=== PATIENT | male | born 1990 | race Caucasian/White ===

== ENCOUNTER 2021-07-02 09:25 | Emergency (ER) | payer BC ==
[2021-07-02 09:30] VITALS: RESP 18
--- NOTE | 2021-07-02 09:50 | ED ---
Upper Extremity HPI - General Chief Complaint: Extremity Injury, Upper Stated Complaint: Finger injury Time Seen by Provider: 07/02/21 09:31 Source: patient, family Mode of arrival: ambulatory Limitations: no limitations - History of Present Illness Initial Comments: The patient is a 31-year-old male who presents to the emergency department following an injury to his left third finger which he obtained one week ago. He was working on a truck and a hoist fell down on his left third finger. His pain is only mild at this point and he states that he has full ROM. Denies any drainage, fevers, chills, or increasing erythema. He specifically wanted to have his finger evaluated because he noticed an increase in swelling and was concerned about a possible foreign body. He has been keeping the injury covered with neosporin and a bandage. Pain is only minimal at this point and he is not requiring any pain medication. MD Complaint: Injury to:: left, finger Onset/Timin -: week(s) Other Extremity Injury: Fingers: Left (left third finger) Other Injuries: none Severity scale (1-10): 2 - Related Data Allergies Allergy/AdvReac Type Severity Reaction Status Date / Time No Known Allergies Allergy Verified 07/02/21 09:30 Review of Systems ROS Statement: Those systems with pertinent positive or pertinent negative responses have been documented in the HPI. ROS Other: All systems not noted in ROS Statement are negative. Past Medical History Past Medical History: No Reported History History of Any Multi-Drug Resistant Organisms: None Reported Past Surgical History: No Surgical Hx Reported Past Psychological History: No Psychological Hx Reported Smoking Status: Never smoker Past Alcohol Use History: Occasional Past Drug Use History: None Reported General Exam Limitations: no limitations General appearance: alert, in no apparent distress Head exam: Present: atraumatic, normocephalic, normal inspection Respiratory exam: Present: normal lung sounds bilaterally. Absent: respiratory distress, wheezes, rales, rhonchi, stridor Cardiovascular Exam: Present: regular rate, normal rhythm, normal heart sounds. Absent: systolic murmur, diastolic murmur, rubs, gallop, clicks Extremities exam: Present: normal capillary refill, other (The left third finger has a superficial laceration with eschar formation and a surrounding ring of erythema. There is mild swelling and the patient has full ROM. No drainage is present.) Course Vital Signs 07/02/21 09:26 Temperature 98.7 F Pulse Rate 100 Respiratory 18 Rate Blood Pressure 129/86 O2 Sat by Pulse 98 Oximetry Medical Decision Making - Medical Decision Making Given the persistent swelling and feeling of a potential foreign body by the patient, an XR was obtained to rule out any fractures or foreign bodies. Xray was negative for any acute changes. The abrasion is healing well with no sign of infection. I educated the patient that the ring of erythema is granulation tissue in the process of healing and is to be expected. Patient stable for discharge home. Return precautions reviewed in depth, the patient is instructed to return to the emergency department if symptoms worsen or do not improve. Patient verbalized understanding. Disposition Clinical Impression: Finger abrasion, non-infected Disposition: HOME SELF-CARE Condition: Stable Instructions (If sedation given, give patient instructions): Abrasion (ED) Additional Instructions: Keep the wound uncovered as much as possible to encourage healing, as long as it is in a clean environment. Is patient prescribed a controlled substance at d/c from ED?: No Referrals: None,Stated [Primary Care Provider] - 1-2 days
--- NOTE | 2021-07-02 09:55 | XR ---
EXAMINATION TYPE: XR finger LT DATE OF EXAM: 07/02/2021 9:50 AM INDICATION: Patient age:Male; 31 years old; Reason for study: Left middle finger, work injury and pain; COMPARISON: None TECHNIQUE: 3 views of the left finger were obtained. FINDINGS: Normal alignment of the visualized joints. No acute osseous pathology is identified. No e vidence of soft tissue swelling. IMPRESSION: No acute osseous pathology.
[2021-07-02 10:29] VITALS: BP 118/69; PULSE 56; TEMP 97.8
== END 2021-07-02 10:29 | disposition home or self-care (01) ==
LOC: EC 09:25
DX: S60.413A Abrasion of left middle finger, initial encounter (principal); W20.8XXA Other cause of strike by thrown, projected or falling object, initial encounter
CPT/HCPCS: 99283

== ENCOUNTER 2021-08-19 01:46 | Emergency (ER) | payer BC ==
[2021-08-19 02:08] VITALS: TEMP 98
--- NOTE | 2021-08-19 03:31 | ED ---
Psych HPI - General Chief Complaint: Psychiatric Symptoms Stated Complaint: Mental health Time Seen by Provider: 08/19/21 02:20 Source: patient Mode of arrival: ambulatory - History of Present Illness Initial Comments: 's patient is a 31-year-old man who complains that he is feeling more and more paranoid. He is feeling people are out to get him. The symptoms have been getting worse since May though he states they have been presents for possibly years in total. Patient was recently seen in clinic and had been started on medications but states they're not helping. Patient denies homicidal or suicidal ideation. MD Complaint: other Onset/Timin -: month(s) Associated Psychiatric Symptoms: racing thoughts, delusions History of same: Yes Quality: getting worse Improves With: none Worsens With: none - Related Data Allergies Allergy/AdvReac Type Severity Reaction Status Date / Time No Known Allergies Allergy Verified 08/19/21 02:08 Review of Systems ROS Statement: Those systems with pertinent positive or pertinent negative responses have been documented in the HPI. ROS Other: All systems not noted in ROS Statement are negative. Constitutional: Denies: fever Respiratory: Denies: cough, dyspnea Cardiovascular: Denies: chest pain, palpitations Gastrointestinal: Denies: abdominal pain, vomiting, diarrhea Genitourinary: Denies: dysuria Musculoskeletal: Denies: back pain Skin: Denies: rash Neurological: Denies: headache, weakness Psychiatric: Denies: auditory hallucinations, visual hallucinations, homicidal thoughts, suicidal thoughts Past Medical History Past Medical History: No Reported History History of Any Multi-Drug Resistant Organisms: None Reported Past Surgical History: No Surgical Hx Reported Past Psychological History: Unable to Obtain Smoking Status: Never smoker Past Alcohol Use History: Occasional Past Drug Use History: None Reported General Exam General appearance: alert, in no apparent distress Head exam: Present: atraumatic, normocephalic Respiratory exam: Present: normal lung sounds bilaterally. Absent: respiratory distress, wheezes, rales, rhonchi, stridor Cardiovascular Exam: Present: regular rate, normal rhythm, normal heart sounds. Absent: systolic murmur, diastolic murmur, rubs, gallop GI/Abdominal exam: Present: soft. Absent: distended, tenderness, guarding, rebound, rigid, mass Extremities exam: Present: normal inspection, normal capillary refill Back exam: Present: normal inspection Neurological exam: Present: alert Psychiatric exam: Absent: depressed, agitated, anxious, flat affect, manic, homicidal ideation, suicidal ideation Skin exam: Present: warm, dry, intact, normal color. Absent: rash Course Vital Signs 08/19/21 02:02 Temperature 98 F Pulse Rate 83 Respiratory 19 Rate Blood Pressure 116/85 O2 Sat by Pulse 97 Oximetry Medical Decision Making - Lab Data Lab Results 08/19/21 Range/Units 03:15 Urine Color Yellow Urine Appearance Clear (Clear) Urine pH 5.5 (5.0-8.0) Ur Specific [place] 1.033 (1.001-1.035) Urine Protein Trace H (Negative) Urine Glucose (UA) Negative (Negative) Urine Ketones Negative (Negative) Urine Blood Negative (Negative) Urine Nitrite Negative (Negative) Urine Bilirubin Negative (Negative) Urine Urobilinogen 2.0 (<2.0) mg/dL Ur Leukocyte Esterase Negative (Negative) Urine Opiates Screen Not Detected (NotDetected) Ur Oxycodone Screen Not Detected (NotDetected) Urine Methadone Screen Not Detected (NotDetected) Ur Propoxyphene Screen Not Detected (NotDetected) Ur Barbiturates Screen Not Detected (NotDetected) U Tricyclic Antidepress Not Detected (NotDetected) Ur Phencyclidine Scrn Not Detected (NotDetected) Ur Amphetamines Screen Not Detected (NotDetected) U Methamphetamines Scrn Not Detected (NotDetected) U Benzodiazepines Scrn Not Detected (NotDetected) Urine Cocaine Screen Not Detected (NotDetected) U Marijuana (THC) Screen Not Detected (NotDetected) Disposition Clinical Impression: Paranoia (psychosis) Disposition: HOME SELF-CARE Condition: Good Instructions (If sedation given, give patient instructions): Psychotic Disorder (ED) Is patient prescribed a controlled substance at d/c from ED?: No Referrals: Nonstaff,Physician [Primary Care Provider] - 1-2 days
[2021-08-19 03:40] LABS: Appearance,Urine Clear (Clear); Bilirubin,Urine Negative (Negative); Blood,Urine Negative (Negative); Color,Urine Yellow; Glucose,Urine (UA) Negative (Negative); Ketones,Urine Negative (Negative); Leukocyte Esterase,Urine Negative (Negative); Nitrite,Urine Negative (Negative); PH, Urine 5.5 (5.0-8.0); Protein,Urine Trace (Negative); Specific Gravity,Urine 1.033 (1.001-1.035)
[2021-08-19 04:02] LABS: Amphetamine Screen,Urine Not Detected (NotDetected); Barbiturate Screen,Urine Not Detected (NotDetected); Benzodiazepines Screen,Urine Not Detected (NotDetected); Cocaine Screen,Urine Not Detected (NotDetected); Methadone Screen, Urine Not Detected (NotDetected); Opiate Screen,Urine Not Detected (NotDetected); Oxycodone Screen, Urine Not Detected (NotDetected); Phencyclidine Screen,Urine Not Detected (NotDetected); Tricyclic Antidepressant,Urine Not Detected (NotDetected); Urn Cannabinoid Scrn Not Detected (NotDetected)
[2021-08-19 04:17] VITALS: BP 120/79; PULSE 84; RESP 18
== END 2021-08-19 04:31 | disposition home or self-care (01) ==
LOC: EC 01:46
DX: F22 Delusional disorders (principal)
CPT/HCPCS: 80306; 81003; 82075; 99284

== ENCOUNTER 2024-01-09 09:23 | Inpatient (IN) | payer BC, OTHER ==
[2024-01-10] MEDS ORDERED: LURASIDONE 40 MG TAB ONE ×2 (08:16→23:59)
[2024-01-10] MEDS ORDERED: lamoTRIgine 25 MG TAB ONE (08:17)
[2024-01-11] MEDS ORDERED: lamoTRIgine 25 MG TAB ONE ×2 (08:24→21:35)
[2024-01-11] MEDS ORDERED: LORazepam 1 MG TAB ONE (21:35)
[2024-01-11] MEDS ORDERED: LURASIDONE 40 MG TAB ONE (23:59)
[2024-01-12] MEDS ORDERED: lamoTRIgine 25 MG TAB ONE ×2 (08:02→20:17)
[2024-01-12] MEDS ORDERED: LURASIDONE 40 MG TAB ONE (08:02)
[2024-01-12] MEDS ORDERED: LORazepam 1 MG TAB ONE ×2 (09:07→16:32)
[2024-01-12] MEDS ORDERED: traZODone HCL 50 MG TAB ONE (21:29)
[2024-01-13] MEDS ORDERED: LORazepam 2 MG/ML INJ IM PRN
[2024-01-13] MEDS ORDERED: IBUPROFEN 600 MG TAB PO PRN
[2024-01-13] MEDS ORDERED: haloperidoL 5 MG TAB PO PRN
[2024-01-13] MEDS ORDERED: HALOPERIDOL LACTATE 5 MG/ML 1 ML VIAL IM PRN
[2024-01-13] MEDS ORDERED: ACETAMINOPHEN TAB 325 MG TAB PO PRN
[2024-01-13] MEDS ORDERED: MAGNESIUM HYDROXIDE 2,400 MG/30 ML CUP PO PRN
[2024-01-13] MEDS ORDERED: MAG HYDROX/AL HYDROX/SIMETH 30 ML CUP PO PRN
[2024-01-13] MEDS ORDERED: LURASIDONE 40 MG TAB ONE (08:44)
[2024-01-13] MEDS ORDERED: lamoTRIgine 25 MG TAB ONE ×2 (08:44→20:43)
[2024-01-13] MEDS ORDERED: LORazepam 1 MG TAB ONE ×2 (10:09→17:07)
[2024-01-13] MEDS: lamoTRIgine 25 MG TAB PO SCH (10:10)
[2024-01-13] MEDS: LURASIDONE 40 MG TAB PO SCH (10:10)
[2024-01-13] MEDS: LORazepam 1 MG TAB PO PRN (10:10)
--- NOTE | 2024-01-13 11:07 | P.PN ---
Progress Note - Text Progress Note Date: 01/13/24 The patient was seen and chart was reviewed and case discussed with the nursing staff Patient reports that he is not experiencing any hallucinations or any paranoid thoughts He denies any suicidal or homicidal ideations He states that the medications do seem to be helping and that his moods are more stable He states that he is hoping to be able to go home soon He states that he will have to find a new job since he was not compliant with his previous job . Mental Status Exam: General Appearance: Patient appears to be , stated age is alert, directable, and attempts to be cooperative. Behavior: Patient is calmly seated without any agitated behavior. Attempts to cooperate. Speech: Patient's speech is fluent and nonpressured. Mood/Affect: Mood is improving mildly, affect is congruent and constricted. Suicidality/Homicidality: Patient denies having any suicidal or homicidal ideation intent or plan. Perceptions: Patient denies any visual hallucinations and denies any auditory hallucinations Though content/process: There is no evidence of any delusional thought content and thought process is linear and goal-directed. [place]. Memory and concentration: AOX3, grossly intact for the purposes of this session Judgment and insight: Improving mildly Assessment Bipolar disorder mixed type improved Substance use disorder unspecified Plan: -Patient continues to meet criteria for inpatient psychiatric admission for symptom stabilization and safety. Patient has signed adult voluntary form and medication consent and was placed in patient's chart. -Medications: Continue Lamictal lurasidone, and Desyrel for insomnia Active Medications Generic Name Dose Route Start Last Admin Trade Name Freq PRN Reason Stop Dose Admin Acetaminophen 650 mg 01/13/24 00:00 Acetaminophen Tab 325 Mg Tab PO Q4H PRN PAIN DISCOMFORT Al Hydroxide/Mg Hydroxide 30 ml 01/13/24 00:00 Mag Hydrox/Al Hydrox/Simeth 30 Ml Cup PO Q4H PRN GI UPSET Haloperidol 5 mg 01/13/24 00:00 Haloperidol 5 Mg Tab PO QID PRN AGITATION Haloperidol Lactate 5 mg 01/13/24 00:00 Haloperidol Lactate 5 Mg/Ml 1 Ml Vial IM QID PRN ACUTE AGITATION Ibuprofen 600 mg 01/13/24 00:00 Ibuprofen 600 Mg Tab PO QID PRN Pain Lamotrigine 25 mg 01/13/24 09:00 01/13/24 10:10 Lamotrigine 25 Mg Tab PO 25 mg BID LYN Administration Lorazepam 1 mg 01/13/24 00:00 01/13/24 10:10 Lorazepam 1 Mg Tab PO 1 mg QID PRN Administration Anxiety Lorazepam 1 mg 01/13/24 00:00 Lorazepam 2 Mg/Ml Inj IM QID PRN ACUTE AGITATION Lurasidone HCl 40 mg 01/13/24 09:00 01/13/24 10:10 Lurasidone 40 Mg Tab PO 40 mg DAILY LYN Administration Magnesium Hydroxide 2,400 mg 01/13/24 00:00 Magnesium Hydroxide 2,400 Mg/30 Ml Cup PO DAILY PRN CONSTIPATION Trazodone HCl 50 mg 01/13/24 00:00 Trazodone Hcl 50 Mg Tab PO HS PRN Insomnia -When necessary Ativan and Haldol for agitation/aggression. -NRT - nicotine patch -SW on board for discharge planning. Encouraged the patient to participate in milieu.
[2024-01-13] MEDS ORDERED: traZODone HCL 50 MG TAB ONE (20:43)
[2024-01-13] MEDS: traZODone HCL 50 MG TAB PO PRN (20:44)
[2024-01-14 07:12] VITALS: BP 108/62; PULSE 70; RESP 14; TEMP 98.1
[2024-01-14] MEDS ORDERED: LORazepam 1 MG TAB ONE (08:31)
[2024-01-14] MEDS ORDERED: lamoTRIgine 25 MG TAB ONE (08:31)
--- NOTE | 2024-01-14 15:07 | P.DS ---
Providers Date of admission: 01/09/24 09:23 Expected date of discharge: 01/14/24 Attending physician: Sameer Price MD Consults: 01/12/24 16:09 Consult Physician Routine Consulting Provider: Alisia Morales Consult Reason/Comments: medical management Do you want consulting provider notified?: Already Contacted Primary care physician: Stated None - Discharge Diagnosis(es) (1) Paranoid psychosis Current Visit: Yes Status: Acute Priority: High Hospital Course: Discharge Summary HPI: The patient noted that he was having issues with his MS. He was hearing voices telling him that his family and parents are danger and he should run away as far as he can. He walked 62 miles to get out of the city. The patient noted that was tired and his legs swell up. He decided to go the police station and seek help. He was [facility]. The police called his family. He was brought to the hospital by his mother. The had discontinued taking his medications for few months before decompensating. He has history of two psychiatric admissions in the past. The second admission was 1 month after the first admission. Hospital Course: After admission, the patient was involved in pharmacotherapy, [place] milieu, and individual psychodynamic psychotherapy. The patient was started Latuda, Lamictal and Trazodone. The dose was titrated to obtain the desire effects. The patient tolerated medications well without any side effects. The patient was also involved in [place] activities. The patient attended the groups and participated well. The patient interacted with peers and staff well. The patient slowly started showing improvement. The hospital course was uneventful. The patient symptoms of depression, suicidal and homicidal ideations abated. The psychosis improved. The patient was stable to be discharged to out-patient care. The patient did not have any guns or weapons in possession at home. MSE: Alert and attentive. Oriented x3 Pleasant and cooperative. Dressed and groomed appropriately. Speech was normal. Psychomotor activity- normal Mood- Depressed and anxious. Affect- Tense, nervous, worried. SI or HI- None noted. Perception- Command auditory hallucination. Thought content- Paranoid delusions. No other delusional theme noted. Thought process- Normal. Judgement and Insight- Poor Diagnosis: Paranoid Psychosis Plan: The patient to be discharged today. The patient has attained good improvement since admission. He is stable to be followed as an outpatient. The patient is not suicidal or Homicidal. He does not pose any harm to self or others. The patient remains at a greater risk of self-harm or harm to others than general population on a chronic basis due to psychiatric illness and substance abuse. The patient will continue taking following medication post discharge. The importance of medication compliance and maintaining regular appointments at psychiatric out-pt and PCP clinic was explained and encouraged. The patient was also advised to seek alcohol counseling and attend AA/NA meetings. The understood and agreed with the recommendations. automobile body worker to arrange for and conduct family meeting to ensure safety upon discharge and answer any questions. The social insurance administrator to arrange for patients follow-up appointments at [facility] for psychiatric care along with follow-up with PCP. The patient provided psychoeducation. Advised to call 911 or go to nearest ED or call this hospital in case of acute worsening of symptomatology, severe side effects or having suicidal, homicidal thoughts and feeling unsafe at home. Patient Condition at Discharge: Stable Plan - Discharge Summary New Discharge Prescriptions: New traZODone HCL [Desyrel] 50 mg PO HS PRN 15 Days #15 tab PRN Reason: Insomnia lamoTRIgine [LaMICtal] 25 mg PO BID 15 Days #30 tab Lurasidone [Latuda] 40 mg PO DAILY 15 Days #15 tab Discharge Medication List Lurasidone [Latuda] 40 mg PO DAILY 15 Days #15 tab 01/14/24 [Rx] lamoTRIgine [LaMICtal] 25 mg PO BID 15 Days #30 tab 01/14/24 [Rx] traZODone HCL [Desyrel] 50 mg PO HS PRN 15 Days #15 tab 01/14/24 [Rx] Follow up Appointment(s)/Referral(s): Fabian Ventura [Other] - 01/16/24 11:20 am
== END 2024-01-14 17:53 | disposition home or self-care (01) | DRG 885 ==
LOC: 3MHU 09:23
PROVIDERS: ADMIT Psychiatry & Neurology Psychiatry; ATTEND Psychiatry & Neurology Psychiatry
DX: F22 Delusional disorders (principal); F31.60 Bipolar disorder, current episode mixed, unspecified; F17.210 Nicotine dependence, cigarettes, uncomplicated; Z71.6 Tobacco abuse counseling; M25.472 Effusion, left ankle; M25.471 Effusion, right ankle; F19.90 Other psychoactive substance use, unspecified, uncomplicated
CPT/HCPCS: 83036; 99285

== ENCOUNTER 2024-03-27 15:01 | Inpatient (IN) | payer BC, OTHER ==
--- NOTE | 2024-03-27 15:51 | ED ---
Psych HPI - General Chief Complaint: Psychiatric Symptoms Stated Complaint: Mental health eval Time Seen by Provider: 03/27/24 15:20 Source: patient, RN notes reviewed, old records reviewed Mode of arrival: ambulatory - History of Present Illness Initial Comments: This is a 33-year-old male to the ER for evaluation today. [place] regards to severe psychiatric illness with family patient has not taken his meds in about 4 to 5 days, patient is and not necessarily homicidal or suicidal but does appear to be more psychotic and here with family who are p etitioning for psychiatric evaluation MD Complaint: suicidal ideation -: days(s) Associated Psychiatric Symptoms: racing thoughts, auditory hallucinations, visual hallucinations, delusions Quality: constant Improves With: none Worsens With: none Context: not taking psychiatric medications Associated Symptoms: denies other symptoms Treatments Prior to Arrival: none - Related Data Previous Rx's Medication Instructions Recorded Lurasidone [Latuda] 40 mg PO DAILY 15 Days #15 tab 01/14/24 lamoTRIgine [LaMICtal] 25 mg PO BID 15 Days #30 tab 01/14/24 traZODone HCL [Desyrel] 50 mg PO HS PRN 15 Days #15 tab 01/14/24 Allergies Allergy/AdvReac Type Severity Reaction Status Date / Time No Known Allergies Allergy Verified 03/27/24 15:18 Review of Systems ROS Statement: Those systems with pertinent positive or pertinent negative responses have been documented in the HPI. ROS Other: All systems not noted in ROS Statement are negative. Past Medical History Past Medical History: No Reported History History of Any Multi-Drug Resistant Organisms: None Reported Past Surgical History: No Surgical Hx Reported Past Psychological History: Unable to Obtain Smoking Status: Never smoker Past Alcohol Use History: Occasional Past Drug Use History: None Reported General Exam Limitations: no limitations General appearance: alert, in no apparent distress Head exam: Present: atraumatic, normocephalic, normal inspection Eye exam: Present: normal appearance, PERRL, EOMI. Absent: scleral icterus, conjunctival injection, periorbital swelling ENT exam: Present: normal exam, mucous membranes moist Neck exam: Present: normal inspection. Absent: tenderness, meningismus, ly mphadenopathy Respiratory exam: Present: normal lung sounds bilaterally. Absent: respiratory distress, wheezes, rales, rhonchi, stridor Cardiovascular Exam: Present: regular rate, normal rhythm, normal heart sounds. Absent: systolic murmur, diastolic murmur, rubs, gallop, clicks GI/Abdominal exam: Present: soft, normal bowel sounds. Absent: distended, tenderness, guarding, rebound, rigid Extremities exam: Present: normal inspection, full ROM, normal capillary refill. Absent: tenderness, pedal edema, joint swelling, calf tenderness Back exam: Present: normal inspection Neurological exam: Present: alert, oriented X3, CN II-XII intact Psychiatric exam: Present: normal affect, normal mood Skin exam: Present: warm, dry, intact, normal color. Absent: rash Course Vital Signs 03/27/24 15:13 Temperature 97.5 F L Pulse Rate 64 Respiratory 20 Rate Blood Pressure 112/69 O2 Sat by Pulse 98 Oximetry - Reevaluation(s) Reevaluation #1: 03/27/24 16:30 Medical records reviewed Reevaluation #2: 03/27/24 16:30 Medical cleared for psychiatric evaluation Reevaluation #3: Differential Mental Health Depression, anxiety, bipolar, psychosis, schizophrenia, borderline personality, situational depression, adjustment disorder, behavioral disorder, brain tumor, malingering, substance abuse, encephalopathy, medication reaction, dementia, hypothyroidism, degenerative neurologic disorder, lupus.... This is not meant to be all-inclusive list Medical Decision Making - Medical Decision Making 33 male will be admitted for psychiatric evaluation and treatment Disposition Clinical Impression: Paranoid psychosis, Acute psychosis Disposition: ADMITTED IP TO THIS [facility] Condition: Fair Is patient prescribed a controlled substance at d/c from ED?: No Referrals: Nonstaff,Physician [REFERRING] - 1-2 days Time of Disposition: 17:50
[2024-03-27] MEDS ORDERED: haloperidoL 5 MG TAB PO PRN (19:57)
[2024-03-27] MEDS ORDERED: LORazepam 2 MG/ML INJ IM PRN (19:57)
[2024-03-27] MEDS ORDERED: MAGNESIUM HYDROXIDE 2,400 MG/30 ML CUP PO PRN (19:57)
[2024-03-27] MEDS ORDERED: IBUPROFEN 600 MG TAB PO PRN (19:57)
[2024-03-27] MEDS ORDERED: MAG HYDROX/AL HYDROX/SIMETH 355 ML BOTTLE PO PRN (19:57)
[2024-03-27] MEDS ORDERED: HALOPERIDOL LACTATE 5 MG/ML 1 ML VIAL IM PRN (19:57)
[2024-03-27] MEDS ORDERED: ACETAMINOPHEN TAB 325 MG TAB PO PRN (19:57)
--- NOTE | 2024-03-28 01:26 | P.PN ---
Progress Note - Text Progress Note Date: 03/28/24 Attempted to see the patient in the mental health unit on 03/27 at 2100. The patient refused to be seen or be evaluated.
[2024-03-28] MEDS: NICOTINE 14MG/24HR PATCH TRANSDERM SCH (11:11)
--- NOTE | 2024-03-28 12:28 | P.HP ---
Psychiatric H&P - . H&P Date: 03/28/24 History & Physical: Allergies Allergy/AdvReac Type Severity Reaction Status Date / Time No Known Allergies Allergy Verified 03/27/24 15:18 Vital Signs Temp 98.0 F 03/27/24 19:57 Pulse 61 03/27/24 19:57 Resp 16 03/27/24 19:57 BP 102/63 03/27/24 19:57 Pulse Ox 98 03/27/24 19:57 FiO2 Intake & Output 03/27/24 03/28/24 03/28/24 18:59 06:59 18:59 Weight 65.771 kg 61 kg Laboratory Last Values SARS-CoV-2 (PCR) Not Detected (Not Detectd) 03/27/24 18:35 03/28/24 08:57 IDENTIFYING DATA: Patient is a 33-year-old male. Been staying with his mother. Going through divorce. No children. Unemployed. HPI: Patient presented to the hospital on 03/27. As per EPS note, "Pt was brought in and petitioned by his step mother. Petition states, " Vinicio has been diagnosed schizophrenia. He is having autitory halucinations telling him to not eat or drink and if he does it will harm him. He has thrown away everything he owns and tell him to leave. We have filed several missing persons reports dur to the command of vocies telling him to walk away from his life and responsibilities. He has stop all medications". Both mother and step mother were present in the ER and both expressed their concerns for pts safety and do not feel he is safe and is going to intentionally or unintentionally harm himself. They states that he has gone missing and that he is not eating much because the voices. Mother went to his home and all his furniture and clothes, "everything" was thrown away. During assessment pt is very flat and guarded. Pt has poor eye contact with RN. Pt admits to a suicide attempt 2 years ago with ASA but when asked if he was suicidal now he would not answer. He does admit to feeling helpless and hopeless. Pt is not sharing much information with RN and will answer alot of questions with " i don't know". He denies anything giving him kaity and has no goals or plans for the future. Pt does not utilize his supports and is not taking medications or following with mental health treatment. Pt admits to a lack of motivation to eat but would not share what he is or isn't eating. He admits to poor sleep and not wanting to care for his basic needs. Pt is tearful on and off during assessment. Pt denies any medical conditions and denies the use of substances of etoh. When RN read pt the petition he did not have any comments or any response, "not much to share". Pt is very vague and guarded. Pt is going through a divorce. Pt is currently staying with his mother in [place] for the last few days." Upon today's assessment, he states he really don't know why he is in here. He states he mom brought him to the hospital, because she thought it was best for him. He states that there was no fights, and no big stressors in his life. He reports an overall good mood, with no depression or anxiety. He states he sleeps well, and he states he is not sure about his appetite. He lacks insight, and he has poor judgment, into his need for treatment. He states he does not need to be in the hospital or need medications. He is very vague and guarded. Poor historian. Poverty of content. The patient is secluding to his room on the unit, refusing food, labs, and w ater. He does appear to be responding to internal stimuli. Patient denies any suicidal or homicidal ideations intent or plan. At this time patient denies any auditory or visual hallucinations. Patient denies any flight of ideas or racing thoughts. He does appear paranoid, due to his unwillingness to participate in the interview. Patient denies using any recreational drugs or alcohol. PAST PSYCHIATRIC HISTORY: Patient states that he has been inpatient. He was last on this unit in December of this year. He denies outpatient follow up. Patient states he tried to overdose on aspirin years ago, as a suicide attempt. PMH:As per ER note ALLERGIES: as per EMR CHEMICAL DEPENDENCY HISTORY: as per HPI FAMILY PSYCHIATRIC/SUBSTANCE USE HISTORY: [denies] SOCIAL HISTORY: Patient was born and raised in [place], [place]. High school graduate. He is currently unemployed, but recently worked retail. He is going through a divorce, has no children. Stays with his mother, and denies any legal problems.. MENTAL STATUS EXAM: General Appearance: Patient appears to be stated age is alert, somewhat uncooperative. Patient appears to have poor hygiene and grooming. Short in stature, thin. Dressed casually. Behavior: Patient is seated without any agitated behavior. [place], Withdrawn, Guarded, vague. Poor eye contact Speech: Patient's speech is minimal Mood/Affect: Patient reports their mood is fine, affect is congruent and constricted. Poverty of content Suicidality/Homicidality: Patient denies having any homicidal ideation intent or plan. [Denies any suicidal ideations intent or plan] Perceptions: Patient denies any visual hallucinations [and denies any auditory hallucinations] Though content/process: [There is no evidence of any delusional thought content and thought process concrete, guarded and vague poverty of content. Memory and concentration: AOX3, grossly intact for the purposes of this session. Judgment and insight: [poor] STRENGTHS/WEAKNESSES: strength is that patient is [resilient]. Weakness is that patient [has poor judgment and poor decision making] INTELLECT: [average] IMPRESSIONS: schizophrenia nonadherence to medication PLAN: -Patient is admitted under [involuntary] status to MHU for stabilization of psychiatric symptoms and safety. Patient has not signed adult voluntary form or medication consent and is placed in patient's chart. A second certification was completed and along with petition will be filed for court. -Medications : Invega PO 3mg bid for psychosis, trazodone 50mg qhs prn for sleep -Ativan [and Haldol] PRN for agitation/aggression -Patient was informed of the risks, benefits and side effects of the medication -Internal Medicine consult to perform medical evaluation and physical. -NRT - [nicotine patch] -SW on board for discharge planning. Encourage patient to participate in groups to work on coping skills. Will await deferral and court date 03/28/24 11:55 03/28/24 12:26
[2024-03-28] MEDS: PALIPERIDONE 3 MG TAB.ER.24 PO SCH (21:40)
--- NOTE | 2024-03-29 14:54 | P.PN ---
Progress Note - Text Progress Note Date: 03/29/24 Interval History: Patient was seen wandering the hallways and was directable and agreeable to sp josi with report writer in the office. Patient is quite withdrawn and guarded during interview. He states that his mood is "good ". Discussed the medications with him and he continues to have hesitation about taking them. He says that he had restlessness when he was on medication in the past but this provider continued to attempt a discussion with him regarding them. He was asked to consider initiating Invega at least at bedtime. He states that his sleep and appetite have been good and denies all concerns. At this time patient denies any suicidal or homicidal ideations, intent or plan. Patient denies any auditory, visual hallucinations and denies any paranoia or delusions. Patient has not been compliant with meds. Mental Status Exam: General Appearance: Patient appears to be stated age is alert, somewhat uncooperative. Patient appears to have poor hygiene and grooming. Short in stature, thin. Dressed casually. Behavior: Patient is seated without any agitated behavior. Withdrawn, Guarded, vague. Poor eye contact Speech: Patient's speech is minimal Mood/Affect: Patient reports their mood is fine, affect is congruent and constricted. Poverty of content Suicidality/Homicidality: Patient denies having any homicidal ideation intent or plan. Denies any suicidal ideations intent or plan Perceptions: Patient denies any visual hallucinations and denies any auditory hallucinations Though content/process: There is no evidence of any delusional thought content and thought process concrete, guarded and vague poverty of content. Memory and concentration: AOX3, grossly intact for the purposes of this session. Judgment and insight: poor Assessment schizophrenia PLAN: -Patient is admitted under involuntary status to MHU for stabilization of psychiatric symptoms and safety. Patient has not signed adult voluntary form or medication consent and is placed in patient's chart. A second certification was completed and along with petition will be filed for court. -Medications : Invega PO 3mg bid for psychosis, trazodone 50mg qhs prn for sleep -Ativan and Haldol PRN for agitation/aggression -Patient was informed of the risks, benefits and side effects of the medication -SW on board for discharge planning. Encourage patient to participate in groups to work on coping skills. Will await deferral and court date 03/28/24 11:55
[2024-03-29] MEDS: LORazepam 1 MG TAB PO PRN (20:42)
[2024-03-30 08:54] LABS: Appearance,Urine Clear (Clear); Bilirubin,Urine Negative (Negative); Blood,Urine Negative (Negative); Color,Urine Yellow; Glucose,Urine (UA) Negative (Negative); Ketones,Urine Negative (Negative); Leukocyte Esterase,Urine Negative (Negative); Nitrite,Urine Negative (Negative); Protein,Urine Trace (Negative); Specific Gravity,Urine 1.034 (1.001-1.035); Urobilinogen,Urine <2.0 mg/dL (<2.0)
[2024-03-30 09:07] LABS: Basophils # (A) 0.1 k/uL (0-0.2); Basophils % (A) 1 %; Eosinophils # (A) 0.2 k/uL (0-0.7); Eosinophils % (A) 3 %; HCT 47.7 % (39.0-53.0); Lymphocytes # (A) 1.7 k/uL (1.0-4.8); Lymphocytes % (A) 32 %; MCH 30.6 pg (25.0-35.0); MCHC 33.4 g/dL (31.0-37.0); MCV 91.6 fL (80.0-100.0); Mean Platelet Volume 8.3; Monocytes # (A) 0.4 k/uL (0-1.0); Monocytes % (A) 7 %; Neutrophils % (A) 55 %; Platelet Count 226 k/uL (150-450); RBC 5.21 m/uL (4.30-5.90); RDW 12.4 % (11.5-15.5); WBC 5.4 k/uL (3.8-10.6)
[2024-03-30 09:20] LABS: ALT 42 U/L (4-49); AST 43 U/L (17-59); African American GFR (CKD) >90 (>60 ml/min/1.73 sqM); Albumin 4.8 g/dL (3.5-5.0); Alkaline Phosphatase 49 U/L (38-126); Anion Gap 10 mmol/L; Bilirubin,Unconjugated 0.6 mg/dL (0.0-1.1); Blood Urea Nitrogen 24 mg/dL (9-20); Calcium 9.6 mg/dL (8.4-10.2); Carbon Dioxide 31 mmol/L (22-30); Chloride 100 mmol/L (98-107); Glucose 114 mg/dL (74-99); Non-African American GFR(CKD) >90 (>60 ml/min/1.73 sqM); Potassium 4.3 mmol/L (3.5-5.1); Sodium 141 mmol/L (137-145); Total Bilirubin 0.6 mg/dL (0.2-1.3); Total Protein 7.6 g/dL (6.3-8.2)
--- NOTE | 2024-03-30 13:04 | P.PN ---
Progress Note - Text Progress Note Date: 03/30/24 Interval History: Patient was seen wandering the hallways and was directable and agreeable to frank prater with bid writer in the office. Patient is less withdrawn during interview. He states that his mood is "good ". He took Invega last night and this morning and says he has not noticed any side effects. He says he would like to follow-up with [facility] following discharge. He says his noncompliance led to being discharged from doctors in the past. Discussed the risks of noncompliance on brain function and cognition over time. He states that his sleep and appetite have been good and denies all concerns. He says he has been drinking Ensure. Discussed results of his labs. Patient agreeable with getting T4 ordered for tomorrow. At this time patient denies any suicidal or homicidal ideations, intent or plan. Patient denies any auditory, visual hallucinations and denies any paranoia or delusions. Mental Status Exam: General Appearance: Patient appears to be stated age is alert, cooperative. Patient appears to have poor hygiene and grooming. Short in stature, thin. Dressed casually. Behavior: Patient is seated without any agitated behavior. Less withdrawn. Fair eye contact Speech: Patient's speech is minimal Mood/Affect: Patient reports their mood is fine, affect is congruent and constricted. Suicidality/Homicidality: Patient denies having any homicidal ideation intent or plan. Denies any suicidal ideations intent or plan Perceptions: Patient denies any visual hallucinations and denies any auditory hallucinations Though content/process: There is no evidence of any delusional thought content and thought process concrete, poverty of content, improving mildly Memory and concentration: AOX3, grossly intact for the purposes of this session. Judgment and insight: poor Assessment schizophrenia PLAN: -Patient is admitted under involuntary status to MHU for stabilization of psychiatric symptoms and safety. Patient has not signed adult voluntary form or medication consent and is placed in patient's chart. A second certification was completed and along with petition will be filed for court. -Medications : Invega PO 3mg bid for psychosis, trazodone 50mg qhs prn for sleep - TSH mildly elevated. Ordered T4 for tomorrow -Ativan and Haldol PRN for agitation/aggression -Patient was informed of the risks, benefits and side effects of the medication -SW on board for discharge planning. Encourage patient to participate in groups to work on coping skills. Will await deferral and court date
[2024-03-30 16:16] LABS: Chol/HDL Ratio 2.87 Ratio; VLDL Calculation 15.24 mg/dL (5.00-40.00)
[2024-03-30 16:54] LABS: Urine Alcohol Negative (Negative); Urine Barbiturate Negative (Negative); Urine Cocaine Negative (Negative); Urine Methadone Negative (Negative); Urine Opiates Negative (Negative); Urine Phencyclidine Negative (Negative)
--- NOTE | 2024-03-31 11:26 | P.PN ---
Progress Note - Text Progress Note Date: 03/31/24 Interval History: Patient was seen wandering the hallways and was directable and agreeable to frank prater with health science writer in the office. Patient reports a good mood today. He is apologetic for his behavior Sunday. He is cooperative today, and his mood, behavior and thought process has improved over the weekend. He states that he has been taking the medications, and he is feeling much more clear. He has been going to groups. He states that his sleep and appetite have been good and denies all concerns. Centrifugal Extractor Operator spoke with the patient about receiving a WHITE, and the patient is agreeable. At this time patient denies any suicidal or homicidal ideations, intent or plan. Patient denies any auditory, visual hallucinations and denies any paranoia or delusions. Mental Status Exam: General Appearance: Patient appears to be stated age is alert, cooperative. Patient appears to have improved hygiene and grooming. Short in stature, thin. Dressed casually. Behavior: Patient is seated without any agitated behavior. Less withdrawn. Fair eye contact Speech: Patient's speech is fluent and nonpressured. Mood/Affect: Patient reports their mood is good, affect is congruent and constricted. Suicidality/Homicidality: Patient denies having any homicidal ideation intent or plan. Denies any suicidal ideations intent or plan Perceptions: Patient denies any visual hallucinations and denies any auditory hallucinations Though content/process: There is no evidence of any delusional thought content and thought process is linear and goal orientated. improving mildly Memory and concentration: AOX3, grossly intact for the purposes of this session. Judgment and insight: poor, mildly improving Assessment schizophrenia PLAN: -Patient is admitted under involuntary status to MHU for stabilization of psychiatric symptoms and safety. Patient has not signed adult voluntary form or medication consent and is placed in patient's chart. A second certification was completed and along with petition will be filed for court. -Medications : Invega PO 3mg bid for psychosis d/c tomorrow morning, trazodone 50mg qhs prn for sleep. Add Invega Sustenna 234mg IM 03/31, next dose of 156mg IM, 04/03, then 117mg IM monthly, due 05/01 -Ativan and Haldol PRN for agitation/aggression -Patient was informed of the risks, benefits and side effects of the medication -SW on board for discharge planning. Encourage patient to participate in groups to work on coping skills. Will await deferral and court date. hopeful for discha rge vs sunday after patient recieves his second WHITE.
[2024-03-31] MEDS: PALIPERIDONE IM 234 MG/1.5 ML SYG IM STA (14:11)
[2024-03-31] MEDS: PALIPERIDONE 3 MG TAB.ER.24 PO SCH (20:41)
[2024-04-01] MEDS: PALIPERIDONE IM 234 MG/1.5 ML SYG IM ONE (09:12)
--- NOTE | 2024-04-01 11:21 | P.PN ---
Progress Note - Text Progress Note Date: 04/01/24 Interval History: Patient was seen wandering the hallways and was directable and agreeable to sp josi with promotion writer in the office. Patient reports a good mood today. He initially refused his WHITE yesterday, however, was agreeable to take it today. He talks of plans to move to [place] with his father upon discharge, and his father is looking into followup care down there for him. He has been going to groups. He states that his sleep and appetite have been good and denies all concerns. Credit Interviewer spoke with the patient about receiving a WHITE, and the patient is agreeable. he received his first WHITE today. At this time patient denies any suicidal or homicidal ideations, intent or plan. Patient denies any auditory, visual hallucinations and denies any paranoia or delusions. Mental Status Exam: General Appearance: Patient appears to be stated age is alert, cooperative. Patient appears to have improved hygiene and grooming. Short in stature, thin. Dressed casually. Behavior: Patient is seated without any agitated behavior. Less withdrawn. Fair eye contact Speech: Patient's speech is fluent and nonpressured. Mood/Affect: Patient reports their mood is good, affect is congruent and constricted. improving mildly Suicidality/Homicidality: Patient denies having any homicidal ideation intent or plan. Denies any suicidal ideations intent or plan Perceptions: Patient denies any visual hallucinations and denies any auditory hallucinations Though content/process: There is no evidence of any delusional thought content and thought process is linear and goal orientated. improving mildly Memory and concentration: AOX3, grossly intact for the purposes of this session. Judgment and insight: mildly improving Assessment schizophrenia PLAN: -Patient is admitted under involuntary status to MHU for stabilization of psychiatric symptoms and safety. Patient has not signed adult voluntary form or medication consent and is placed in patient's chart. -Medications : d/c Invega PO today. trazodone 50mg qhs prn for sleep. Invega Sustenna 234mg IM 04/01, next dose of 156mg IM, 04/04, then 117mg IM monthly, due 05/02 -Ativan and Haldol PRN for agitation/aggression -SW on board for discharge planning. Encourage patient to participate in groups to work on coping skills. Will await deferral and court date. hopeful for discharge sunday after patient receives his second WHITE.
[2024-04-01 13:52] VITALS: BMI 20.6
[2024-04-01] MEDS: traZODone HCL 50 MG TAB PO PRN (20:57)
[2024-04-02 07:27] VITALS: RESP 16
[2024-04-02] MEDS ORDERED: traZODone HCL 50 MG TAB PO PRN (12:37)
--- NOTE | 2024-04-02 12:40 | P.PN ---
Progress Note - Text Progress Note Date: 04/02/24 Interval History: Patient was seen wandering the hallways and was directable and agreeable to frank prater with information writer in the office. Patient reports a good mood today, states that he is doing better overall. Claims that he is tolerating the long-acting injection fairly well. He is okay with taking the second dose on Sunday morning before discharge. States that he is trying to go to groups interact with other patients. He is reported reporting an improvement in his mood and also anxiety today.. He states that his sleep and appetite have been good and denies all concerns. He claims that he did try the trazodone last night however states that it might be too strong, was agreeable to try a half dose. At this time patient denies any suicidal or homicidal ideations, intent or plan. Patient denies any auditory, visual hallucinations and denies any paranoia or delusions. Mental Status Exam: General Appearance: Patient appears to be stated age is alert, cooperative. Patient appears to have improved hygiene and grooming. Short in stature, thin. Dressed casually. Behavior: Patient is seated without any agitated behavior. Less withdrawn. Fair eye contact Speech: Patient's speech is fluent and nonpressured. Mood/Affect: Patient reports their mood is good, affect is congruent and constri cted. improving mildly Suicidality/Homicidality: Patient denies having any homicidal ideation intent or plan. Denies any suicidal ideations intent or plan Perceptions: Patient denies any visual hallucinations and denies any auditory hallucinations Though content/process: There is no evidence of any delusional thought content and thought process is linear and goal orientated. improving mildly Memory and concentration: AOX3, grossly intact for the purposes of this session. Judgment and insight: mildly improving Assessment schizophrenia PLAN: -Patient is admitted under involuntary status to MHU for stabilization of psychiatric symptoms and safety. Patient has not signed adult voluntary form or medication consent and is placed in patient's chart. -Medications : d/c Invega PO today. decrease trazodone 25 mg qhs prn for sleep. Invega Sustenna 234mg IM 04/01, next dose of 156mg IM, 04/04, then 117mg IM monthly, due 05/02 -Ativan and Haldol PRN for agitation/aggression -SW on board for discharge planning. Encourage patient to participate in groups to work on coping skills. Will await deferral and court date. hopeful for discharge sunday after patient receives his second WHITE.
[2024-04-03 07:03] VITALS: TEMP 98.6
--- NOTE | 2024-04-03 10:16 | P.PN ---
Progress Note - Text Progress Note Date: 04/03/24 Interval History: Patient was seen wandering the hallways and was directable and agreeable to sp josi with short story writer in the office. Patient denied any overnight complaints. States that he is doing a bit better today. We spoke more about discharge planning likely tomorrow after he receives the second shot. He claims that his mother will most likely pick him up. He is trying to go to groups. Claims that he is eating fairly, slept fairly throughout the night did not need trazodone. At this time patient denies any suicidal or homicidal ideations, intent or plan. Patient denies any auditory, visual hallucinations and denies any paranoia or delusions. Mental Status Exam: General Appearance: Patient appears to be stated age is alert, cooperative. Patient appears to have improved hygiene and grooming. Short in stature, thin. Dressed casually. Behavior: Patient is seated without any agitated behavior. Fair eye contact Speech: Patient's speech is fluent and nonpressured. Mood/Affect: Patient reports their mood is good, affect is congruent and improving mildly Suicidality/Homicidality: Patient denies having any homicidal ideation intent or plan. Denies any suicidal ideations intent or plan Perceptions: Patient denies any visual hallucinations and denies any auditory hallucinations Though content/process: There is no evidence of any delusional thought content and thought process is linear and goal orientated. improving mildly Memory and concentration: AOX3, grossly intact for the purposes of this session. Judgment and insight: mildly improving Assessment schizophrenia PLAN: -Patient is admitted under involuntary status to MHU for stabilization of psychiatric symptoms and safety. Patient has not signed adult voluntary form or medication consent and is placed in patient's chart. -Medications : trazodone 25 mg qhs prn for sleep. Invega Sustenna 234mg IM 04/01, next dose of 156mg IM, 04/04, then 117mg IM monthly, due 05/02 -Ativan and Haldol PRN for agitation/aggression -NRT - non-smoker -SW on board for discharge planning. Encourage patient to participate in groups to work on coping skills. Will await deferral and court date, patient will need to do deferral with his county attorney tomorrow prior to d/c. hopeful for discharge tomorrow after patient receives his second WHITE.
[2024-04-04 06:47] VITALS: BP 93/54; PULSE 66
[2024-04-04] MEDS: PALIPERIDONE IM 156 MG/ML SYG IM ONE (09:17)
--- NOTE | 2024-04-04 11:07 | P.DS ---
Providers Date of admission: 03/27/24 19:56 Expected date of discharge: 04/04/24 Attending physician: Gary Restrepo MD Consults: 03/27/24 19:57 Consult Physician Routine Consulting Provider: Angeli Carrera Consult Reason/Comments: H & P Do you want consulting provider notified?: Yes, Notify in am Primary care physician: Stated None - Discharge Diagnosis(es) (1) Schizophrenia Current Visit: Yes Status: Acute Priority: High Hospital Course: Admission HPI: Admission note was completed by senior writer" Patient presented to the hospital on 03/27. As per EPS note, "Pt was brought in and petitioned by his step mother. Petition states, " Vinicio has been diagnosed schizophrenia. He is having autitory halucinations telling him to not eat or drink and if he does it will harm him. He has thrown away everything he owns and tell him to leave. We have filed several missing persons reports dur to the command of [employer] telling him to walk away from his life and responsibilities. He has stop all medications". Both mother and step mother were present in the ER and both expressed their concerns for pts safety and do not feel he is safe and is going to intentionally or unintentionally harm himself. They states that he has gone missing and that he is not eating much because the voices. Mother went to his home and all his furniture and clothes, "everything" was thrown away. During assessment pt is very flat and guarded. Pt has poor eye contact with RN. Pt admits to a suicide attempt 2 years ago with [facility]SA but when asked if he was suicidal now he would not answer. He does admit to feeling helpless and hopeless. Pt is not sharing much information with RN and will answer alot of questions with " i don't know". He denies anything giving him kaity and has no goals or plans for the future. Pt does not utilize his supports and is not taking medications or following with mental health treatment. Pt admits to a lack of motivation to eat but would not share what he is or isn't eating. He admits to poor sleep and not wanting to care for his basic needs. Pt is tearful on and off during assessment. Pt denies any medical conditions and denies the use of substances of etoh. When RN read pt the petition he did not have any comments or any response, "not much to share". Pt is very vague and guarded. Pt is going through a divorce. Pt is currently staying with his mother in [place] for the last few days." Upon today's assessment, he states he really don't know why he is in here. He states he mom brought him to the hospital, because she thought it was best for him. He states that there was no fights, and no big stressors in his life. He reports an overall good mood, with no depression or anxiety. He states he sleeps well, and he states he is not sure about his appetite. He lacks insight, and he has poor judgment, into his need for treatment. He states he does not need to be in the hospital or need medications. He is very vague and guarded. Poor historian. Poverty of content. The patient is secluding to his room on the unit, refusing food, labs, and water. He does appear to be responding to internal stimuli. Patient denies any suicidal or homicidal ideations intent or plan. At this time patient denies any auditory or visual hallucinations. Patient denies any flight of ideas or racing thoughts. He does appear paranoid, due to his unwillingness to participate in the interview. Patient denies using any recreational drugs or alcohol." Hospital course: Upon admission to the unit patient was directable and agreeable to commence treatment and signed adult voluntary form. Patient ended up signing a deferral with the trust and estates attorney and agreeing to treatment. Patient got along well with other patients on the unit and followed unit protocol. Patient was compliant with the medications and denied any side effects throughout hospital course. Patient was started on Invega p.o. increased to dose of 3 mg twice daily, he was agreeable to be transitioned onto Invega Sustenna to ensure compliance. Given loading dose of 234 mg IM on 04/01, second dose of 156 mg IM was given on 04/04. Monthly maintenance dose of 117 mg IM will be due on 05/02. Trazodone 25 mg nightly as needed for sleep. Patient spoke of his stressors and engaged in therapy both group and individual. Patient was also seen by medical team for history and physical exam. Throughout the course of the hospitalization patient gradually improved with regards to mood, anxiety, psychosis, sleep and became more future oriented with improved insight and judgment. On the day of discharge patient denied any suicidal or homicidal ideations intent or plan denied any auditory or visual hallucinations. Patient endorsed wanting to live for his health and family. The patient denied any access to guns or weapons. Patient denied any paranoia and did not endorse any delusions. Patient does have a significant history of substance abuse and was counseled on abstaining from all substances including alcohol and marijuana. Patient was also counseled on the medications and need for regular compliance and was encouraged to follow-up with their outpatient appointment for mental health and also for primary care. Prior to discharge a family meeting will be arranged by school social worker to answer any questions and ensure safety upon discharge. Patient will be discharged today back home. Mental status exam: General Appearance: Patient appears to be thin, stated age is alert, pleasant, and cooperative. Patient is in no acute distress and has improved hygiene and grooming Behavior: Patient is calmly seated without any agitated behavior. Speech: Patient's speech is fluent and nonpressured. Mood/Affect: Patient reports their mood is "good", affect is congruent Suicidality/Homicidality: Patient denies having any suicidal or homicidal ideation intent or plan. Perceptions: Patient denies any auditory or visual hallucinations. Though content/process: There is no evidence of any delusional thought content and thought process is linear and goal-directed. More future oriented Memory and concentration: AOX3, grossly intact for the purposes of this session. Can spell "WORLD" backwards correctly. Judgment and insight: improved with guarded prognosis Impression: schizophrenia Plan: -Continue with discharge today as patient has improved and stabilized psychiatrically and is not currently an imminent threat to himself and/or others. -Continue medications: Invega p.o. was titrated off. Patient was given Invega Sustenna loading dose 234 mg IM on 04/01, second dose of 156 mg IM was given on 04/04. Next monthly maintenance dose of 117 mg IM will be due on 05/02. Trazodone 25 mg nightly as needed for sleep. -Patient was counseled on the need for medication compliance and appropriate follow-up at mental health and also primary care for medical issues. Patient verbalized understanding and agreed. -Social work to arrange for and conduct family meeting to ensure safety upon discharge and answer any questions/concerns. Patient plans to move to [place] with his family, he will be receiving psychiatric outpatient follow-up there. Social work also to arrange for patients follow up appointments for psychiatric care along with follow up with primary care provider. -Patient counseled on abstaining from recreational drugs and marijuana and alcohol. Was informed/educated on the adverse effects on their physical and mental health. Patient verbally agreed and understood. -Patient was instructed to return to the hospital or seek immediate medical care if their psychiatric or medical symptoms do worsen or reoccur. ] Allergies Allergy/AdvReac Type Severity Reaction Status Date / Time No Known Allergies Allergy Verified 03/27/24 15:18 Laboratory Results WBC 5.4 k/uL (3.8-10.6) 03/30/24 08:31 RBC 5.21 m/uL (4.30-5.90) 03/30/24 08:31 Hgb 16.0 gm/dL (13.0-17.5) 03/30/24 08: Hct 47.7 % (39.0-53.0) 03/30/24 08: MCV 91.6 fL (80.0-100.0) 03/30/24 08:31 MCH 30.6 pg (25.0-35.0) 03/30/24 08: MCHC 33.4 g/dL (31.0-37.0) 03/30/24 08:31 RDW 12.4 % (11.5-15.5) 03/30/24 08:31 Plt Count 226 k/uL (150-450) 03/30/24 08:31 MPV 8.3 03/30/24 08:31 Neutrophils % 55 % 03/30/24 08:31 Lymphocytes % 32 % 03/30/24 08:31 Monocytes % 7 % 03/30/24 08:31 Eosinophils % 3 % 03/30/24 08: Basophils % 1 % 03/30/24 08:31 Neutrophils # 3.0 k/uL (1.3-7.7) 03/30/24 08:31 Lymphocytes # 1.7 k/uL (1.0-4.8) 03/30/24 08:31 Monocytes # 0.4 k/uL (0-1.0) 03/30/24 08:31 Eosinophils # 0.2 k/uL (0-0.7) 03/30/24 08:31 Basophils # 0.1 k/uL (0-0.2) 03/30/24 08:31 Sodium 141 mmol/L (137-145) 03/30/24 08:31 Potassium 4.3 mmol/L (3.5-5.1) 03/30/24 08:31 Chloride 100 mmol/L (98-107) 03/30/24 08:31 Carbon Dioxide 31 mmol/L (22-30) H 03/30/24 08:31 Anion Gap 10 mmol/L 03/30/24 08:31 BUN 24 mg/dL (9-20) H 03/30/24 08:31 Creatinine 0.83 mg/dL (0.66-1.25) 03/30/24 08:31 Est GFR (CKD-EPI)AfAm >90 (>60 ml/min/1.73 sqM) 03/30/24 08:31 Est GFR (CKD-EPI)NonAf >90 (>60 ml/min/1.73 sqM) 03/30/24 08:31 Glucose 114 mg/dL (74-99) H 03/30/24 08:[address] Glu mg/dL 114 mg/dL 03/30/24 08:31 Hemoglobin A1c 5.6 % (<=6.0) 03/30/24 08:31 Calcium 9.6 mg/dL (8.4-10.2) 03/30/24 08:31 Total Bilirubin 0.6 mg/dL (0.2-1.3) 03/30/24 08:31 Conjugated Bilirubin 0.0 mg/dL (0.0-0.3) 03/30/24 08:31 Unconjugated Bilirubin 0.6 mg/dL (0.0-1.1) 03/30/24 08:31 Delta Bilirubin 0.0 mg/dL (0.0-0.2) 03/30/24 08:31 AST 43 U/L (17-59) 03/30/24 08:31 ALT 42 U/L (4-49) 03/30/24 08:31 Alkaline Phosphatase 49 U/L (38-126) 03/30/24 08:31 Total Protein 7.6 g/dL (6.3-8.2) 03/30/24 08:31 Albumin 4.8 g/dL (3.5-5.0) 03/30/24 08:31 Triglycerides 76.20 mg/dL (0.00-149.00) 03/30/24 08:31 Cholesterol 143.00 mg/dL (0.00-200.00) 03/30/24 08:31 LDL Cholesterol, Calc 78.0 mg/dL (0.0-131.0) 03/30/24 08:31 VLDL Cholesterol, Calc 15.24 mg/dL (5.00-40.00) 03/30/24 08:31 HDL Cholesterol 49.80 mg/dL (40.00-60.00) 03/30/24 08:31 Cholesterol/HDL Ratio 2.87 Ratio 03/30/24 08:31 TSH 4.750 mIU/L (0.465-4.680) H 03/30/24 08:31 Urine Color Yellow 03/30/24 08:40 Urine Appearance Clear (Clear) 03/30/24 08:40 Urine pH 6.0 (5.0-8.0) 03/30/24 08:40 Ur Specific [place] 1.034 (1.001-1.035) 03/30/24 08:40 Urine Protein Trace (Negative) H 03/30/24 08:40 Urine Glucose (UA) Negative (Negative) 03/30/24 08:40 Urine Ketones Negative (Negative) 03/30/24 08:40 Urine Blood Negative (Negative) 03/30/24 08:40 Urine Nitrite Negative (Negative) 03/30/24 08:40 Urine Bilirubin Negative (Negative) 03/30/24 08:40 Urine Urobilinogen <2.0 mg/dL (<2.0) 03/30/24 08:40 Ur Leukocyte Esterase Negative (Negative) 03/30/24 08:40 Urine Opiates Screen Negative (Negative) 03/30/24 08:40 Urine Methadone Screen Negative (Negative) 03/30/24 08:40 Ur Propoxyphene Screen Negative (Negative) 03/30/24 08:40 Urine Barbiturates Negative (Negative) 03/30/24 08:40 Ur Phencyclidine Scrn Negative (Negative) 03/30/24 08:40 Ur Amphetamine Screen Negative (Negative) 03/30/24 08:40 U Benzodiazepines Scrn Negative (Negative) 03/30/24 08:40 Urine Cocaine Screen Negative (Negative) 03/30/24 08:40 U Cannabinoids Screen Negative (Negative) 03/30/24 08:40 Urine Alcohol Negative (Negative) 03/30/24 08:40 U Creatinine Drug Scrn 275.0 mg/dL (>=20.0) 03/30/24 08:40 SARS-CoV-2 (PCR) Not Detected (Not Detectd) 03/27/24 18:35 Vital Signs Temp 98.6 F 04/03/24 06:00 Pulse 66 04/04/24 06:00 Resp 16 04/04/24 06:00 BP 93/54 04/04/24 06:00 Pulse Ox 98 04/04/24 06:00 FiO2 Patient Condition at Discharge: Stable Plan - Discharge Summary Discharge Rx Participant: No New Discharge Prescriptions: New traZODone HCL [Desyrel] 25 mg PO HS PRN 28 Days #14 tab PRN Reason: Insomnia Paliperidone Palmitate [Invega Sustenna] 117 mg IM QMONTHLY #1 each Discontinued traZODone HCL [Desyrel] 50 mg PO HS PRN 15 Days #15 tab PRN Reason: Insomnia lamoTRIgine [LaMICtal] 25 mg PO BID 15 Days #30 tab Lurasidone [Latuda] 40 mg PO DAILY 15 Days #15 tab Discharge Medication List Paliperidone Palmitate [Invega Sustenna] 117 mg IM QMONTHLY #1 each 04/04/24 [Rx] traZODone HCL [Desyrel] 25 mg PO HS PRN 28 Days #14 tab 04/04/24 [Rx] Follow up Appointment(s)/Referral(s): [facility] [Other] - 04/10/24 9:00 am [facility] [Other] - 1 Week Patient Instructions/Handouts: Schizophrenia (DC), Psychotic Disorder (DC) Activity/Diet/Wound Care/Special Instructions: Avoid the use of street drugs and alcohol. Take all medications as prescribed. When you are in need of refills on your medications, please contact your medical provider and/or outpatient psychiatrist/provider to have this done. Please go to your scheduled outpatient appointment for aftercare treatment. If symptoms return or become worse, call the crisis line at and/or go to the nearest emergency room for evaluation. National Suicide Hotline 988 Discharge Disposition: HOME SELF-CARE
== END 2024-04-04 14:52 | disposition home or self-care (01) | DRG 885 ==
LOC: EC 15:01 → 3MHU 19:56
PROVIDERS: ADMIT Psychiatry & Neurology Psychiatry; ATTEND Psychiatry & Neurology Psychiatry
DX: F20.9 Schizophrenia, unspecified (principal); R45.851 Suicidal ideations; F41.9 Anxiety disorder, unspecified; Z63.5 Disruption of family by separation and divorce; Z79.899 Other long term (current) drug therapy; Z91.148 Patient's other noncompliance with medication regimen for other reason; Z91.199 Patient's noncompliance with other medical treatment and regimen due to unspecified reason; Z91.51 Personal history of suicidal behavior; Z11.52 Encounter for screening for COVID-19
CPT/HCPCS: 80053; 80061; 80306; 81003; 82075; 82248; 83036; 84443; 85025; 87635; 99285